=== PATIENT | female | born 1945 | race Caucasian/White ===

== ENCOUNTER 2021-03-17 06:33 | Observation (INO) ==
--- NOTE | 2021-02-17 14:54 | PAT Medication Instructions ---
Medication Instructions Date of Service February 17, 2021 Home Medications lorazepam 1 mg PO HS PRN meloxicam 15 mg PO DAILY PRN metoprolol succinate 50 mg PO QAM quinapril 30 mg PO QPM simvastatin 40 mg PO QPM ascorbic acid (vitamin C) [Vitamin C] 1,000 mg PO QAM calcium carbonate-vitamin D3 [Calcium 500 + D] 1 tab PO BID cyanocobalamin (vitamin B-12) 5,000 mcg PO QAM lactobacillus combination no.4 [Probiotic] 3,000 mmu cells PO QAM multivitamin 1 tab PO QAM omeprazole [Prilosec] 40 mg PO QAM vit C,W-Wy-xwqml-lutein-zeaxan [PreserVision AREDS-2] 1 tab PO BID zinc 50 mg PO QAM ASK your surgeon for instructions meloxicam 15 mg PO DAILY PRN STOP taking 2 weeks before surgery (or as soon as possible if surgery is within 2 weeks) vit C,R-Dg-onmkk-lutein-zeaxan [PreserVision AREDS-2] 1 tab PO BID DO NOT take the morning of surgery ascorbic acid (vitamin C) [Vitamin C] 1,000 mg PO QAM calcium carbonate-vitamin D3 [Calcium 500 + D] 1 tab PO BID cyanocobalamin (vitamin B-12) 5,000 mcg PO QAM lactobacillus combination no.4 [Probiotic] 3,000 mmu cells PO QAM multivitamin 1 tab PO QAM zinc 50 mg PO QAM Take morning of surgery With a small sip of water, OTHERWISE NOTHING TO EAT OR DRINK AFTER MIDNIGHT: metoprolol succinate 50 mg PO QAM omeprazole [Prilosec] 40 mg PO QAM Take evening before surgery lorazepam 1 mg PO HS PRN (if needed) quinapril 30 mg PO QPM simvastatin 40 mg PO QPM calcium carbonate-vitamin D3 [Calcium 500 + D] 1 tab PO BID Other Notes If you have any questions please call us at [phone] or [phone] or [phone] or [phone]
--- NOTE | 2021-02-21 10:55 | Anesthesiology Consultation ---
Date of Service February 21, 2021 Assessment & Plan (1) Encounter for pre-operative examination: COVID screening: Per assessment on 02/21: Travel screen negative, no known COVID- 19 positive contacts or current COVID-19 related symptoms. Patient vaccinated. Surgeon arranging preop COVID testing. Awaiting results. Chart Review Chart Review: Acceptable Risk for Surgery and Patient seen in Pre Admission Testing Teaching & Discussion Pre-Anesthesia Teaching/Discussion Notes: Instructed NPO after midnight before surgery,except medications with 15 cc of water. Medication instructions provided according to the PAT guidelines. History Surgery Operation Date: 03/17/21 07:00 Proposed Procedures p Left Total Knee Arthroplasty - Doug Perez MD Height/Weight Height: 5 ft 2 in Weight: 71.6 kg Allergies Allergy/AdvReac Type Severity Reaction Status Date / Time No Known Allergies Allergy Verified 01/21/21 13:54 Medications Home Medications Medication Instructions Recorded Confirmed Last Taken lorazepam 1 mg PO HS PRN 02/05/20 01/21/21 Unknown meloxicam 15 mg PO DAILY PRN 02/05/20 01/21/21 Unknown metoprolol succinate 50 mg PO QAM 02/05/20 01/21/21 Unknown quinapril 30 mg PO QAM 02/05/20 02/21/21 Unknown simvastatin 40 mg PO QPM 02/05/20 01/21/21 Unknown ascorbic acid (vitamin C) [Vitamin 1,000 mg PO QAM 01/21/21 01/21/21 Unknown C] calcium carbonate-vitamin D3 1 tab PO BID 01/21/21 01/21/21 Unknown [Calcium 500 + D] cyanocobalamin (vitamin B-12) 5,000 mcg PO QAM 01/21/21 01/21/21 Unknown lactobacillus combination no.4 3,000 mmu cells PO QAM 01/21/21 01/21/21 Unknown [Probiotic] multivitamin 1 tab PO QAM 01/21/21 01/21/21 Unknown omeprazole [Prilosec] 40 mg PO QAM 01/21/21 01/21/21 Unknown vit C,N-Eo-mdxdo-lutein-zeaxan 1 tab PO BID 01/21/21 01/21/21 Unknown [PreserVision AREDS-2] zinc 50 mg PO QAM 01/21/21 01/21/21 Unknown Past Medical History Medical History Arthritis Colitis 2020 GERD (gastroesophageal reflux disease) controlled Hypercholesterolemia Hypertension Exercise / Class Metabolic Activity II 4-5 Yardwork/Stairs/Walk up hill (one FS (no CP, no SOB)) Past Family History Family History Other No known health problems Past Surgical History Surgical History History of colonoscopy History of esophagogastroduodenoscopy (EGD) History of total knee replacement Right (2013) Past Anesthesia History No Hx of Anesthesia Complications and No Family Hx of Anesthesia Complications History of PONV No Hx of PONV and No Hx of Motion Sickness Social History Smoking Status: Never smoker Do You Dip or Chew Tobacco: No Hx Alcohol Use: Yes Alcohol type: wine alcohol intake frequency: a few times a week Hx Substance Use: No Review of Systems Patient denies chest pain, shortness of breath, dyspnea on exertion, fever, chills, cough, wheezing, palpitations. Physical Exam Vital Signs VITALS BP 145/79 P 80 TEMP 98.7 SP02 99%RA RESP 16 PHYSICAL Full cervical extension range of motion. Full TMJ range of motion. TMD 3 finger breaths Mallampati Score 1 Dentition: intact, + crowns (several) Lungs: clear throughout to auscultation Cardiac: regular rate and rhythm, no murmurs noted Spine: normal Carotid arteries: negative bruit Extremities: no edema Lab Results Anesthesia Preop Results Results Anesthesia Widget: WBC 8.09 K/uL (4.8-10.8) 02/21/21 Hgb 14.0 g/dL (12.0-16.0) 02/21/21 Hct 41.8 % (37-47) 02/21/21 Plt 259 K/uL (130-400) 02/21/21 Na 137 mmol/L (136-145) 02/21/21 K 4.2 mmol/L (3.5-5.1) 02/21/21 Cl 105 mmol/L (98-107) 02/21/21 CO2 30 mmol/L (21-32) 02/21/21 BUN 11 mg/dl (7-18) 02/21/21 Creat 0.72 mg/dl (0.6-1.2) 02/21/21 Glucose Level 129 mg/dl (70-99) H 02/21/21 PT 10.5 Seconds (9.0-12.0) 02/21/21 PTT 26.1 Seconds (21.0-31.0) 02/21/21 INR 1.0 (0.9-1.1) 02/21/21 HA1c 5.6 % (4.5-5.6) 02/21/21 Urine Color Yellow 02/21/21 Urine Appearance Clear (Clear) 02/21/21 Urine pH 6.0 (4.5-7.5) 02/21/21 Urine Specific Morgan 1.014 (1.000-1.030) 02/21/21 Urine Protein Negative (Negative) 02/21/21 Urine Glucose (UA) Negative (Negative) 02/21/21 Urine Ketones Negative (Negative) 02/21/21 Urine Blood Negative (Negative) 02/21/21 Urine Nitrite Negative (Negative) 02/21/21 Urine Bilirubin Negative (Negative) 02/21/21 Urine Urobilinogen Negative (Negative) 02/21/21 Urine Leukocyte Esterase Negative (Negative) 02/21/21 Blood Type O Positive 02/21/21 Antibody Screen NEGATIVE 02/21/21 Testing Electrocardiogram Date: 01/01/21 Normal sinus rhythm at 76 bpm. LAD. Moderate voltage criteria for LVH, may be normal variant. Nonspecific ST/T wave abnormality. No significant change compared to 07/20/2016 per traffic reporter review. Chest X-Ray Date: 02/21/21 FINDINGS: The cardiac and mediastinal contours are normal. There is no evidence of focal pulmonary consolidation. There is no evidence of failure. No pleural effusions are visualized.[There is mild thoracolumbar scoliosis. There are minor left basilar atelectatic changes. IMPRESSION: No active disease in the chest.
--- NOTE | 2021-03-14 22:43 | History & Physical Report ---
Date of Service March 14, 2021 Assessment & Plan (1) Primary osteoarthritis of left knee: Plan: Treatment options discussed with patient. She has failed conservative measures and would like to proceed with surgical intervention. Risks, benefits and alternatives to surgery including but not limited to infection, DVT, pain, stiffness, need for revision surgery, damage to blood vessels, damage to nerves, PE, , were discussed with the patient and they wish to proceed. Plan on left total knee arthroplasty at [facility] on 03/17/21. Will plan on ASA 81mg BID x 1 mo post op for DVT prophylaxis. Will plan on home health PT post discharge. All questions answered. She will follow up post operatively. History of Present Illness Chief Complaint: Left knee pain Primary Care Provider: Adrienne Arreola, 75 year old female with PMHx significant for HTN, high cholesterol, GERD, colitis who presents with ongoing left knee pain. She has history of right knee replacement and has done well. She has failed conservative measures. Pain interfering with her daily activities. She would like to proceed with knee replacement. Patient denies headaches, sweats, fevers, chills, double vision, blurred vision, cough, sore throat, dysphagia, chest pain, sob, wheezing, n/v/d/c, numbness, tingling, fatigue, urinary symptoms, mood disorders. ROS positive for left knee pain and stiffness. Allergies Allergy/AdvReac Type Severity Reaction Status Date / Time No Known Allergies Allergy Verified 01/21/21 13:54 Home Medications Medication Instructions Recorded Confirmed Type lorazepam 1 mg tablet 1 mg PO HS PRN 02/05/20 01/21/21 History meloxicam 15 mg tablet 15 mg PO DAILY PRN 02/05/20 01/21/21 History metoprolol succinate 50 mg 50 mg PO QAM 02/05/20 01/21/21 History tablet,extended release 24 hr quinapril 10 mg tablet 30 mg PO QAM 02/05/20 02/21/21 History simvastatin 40 mg tablet 40 mg PO QPM 02/05/20 01/21/21 History ascorbic acid (vitamin C) 1,000 mg 1,000 mg PO QAM 01/21/21 01/21/21 History tablet (Vitamin C) calcium carbonate 500 mg (1,250 1 tab PO BID 01/21/21 01/21/21 History mg)-vitamin D3 200 unit tablet (Calcium 500 + D) cyanocobalamin (vitamin B-12) 5,000 mcg PO QAM 01/21/21 01/21/21 History 5,000 mcg capsule lactobacillus combination no.4 3 3,000 mmu cells PO QAM 01/21/21 01/21/21 History billion cell capsule (Probiotic) multivitamin 1 tab PO QAM 01/21/21 01/21/21 History omeprazole 40 mg capsule,delayed 40 mg PO QAM 01/21/21 01/21/21 History release vit C 250 mg-vit E 90 mg-zinc 40 1 tab PO BID 01/21/21 01/21/21 History mg-copper 1 ru-vapkre-gyfxjn capsule (PreserVision AREDS-2) zinc 50 mg tablet 50 mg PO QAM 01/21/21 01/21/21 History Past Med/Surg History Medical History Arthritis Colitis 2020 GERD (gastroesophageal reflux disease) controlled Hypercholesterolemia Hypertension Surgical History History of colonoscopy History of esophagogastroduodenoscopy (EGD) History of total knee replacement Right (2013) Family History Other No known health problems Social History (Updated 01/21/21 @ 14:13 by Rand Wade RN) Smoking Status: Never smoker Second Hand Exposure: Yes (PARENTS SMOKED/SPOUSE USED TO SMOKE); Hx Alcohol Use: Yes Alcohol type: wine Hx Substance Use: No Preferred Language: [place]an Communication Ability: Effective Circus Trainer Required: No Beliefs That Will Affect Care: None Current Living Situation: Spouse current occupational status: retired Feels Safe at Home: Yes Assistive Devices: Contacts and Glasses Review of Systems All systems reviewed & are unremarkable except as noted in HPI & below Physical Exam Constitutional: well developed and well nourished; no acute distress Eyes: PERRL, conjunctivae normal, anicteric sclerae ENMT: external ear and nose normal, oropharynx normal Neck: trachea midline, no thyromegaly Respiratory: normal respiratory effort, lungs clear to auscultation Cardiovascular: RRR, no murmur, no edema Musculoskeletal: Left knee: Varus alignment. Tenderness medial joint line. Mild effusion. ROM 0-130 degrees. Stable to valgus and varus stress test with pseudolaxity. Crepitation with valgus/varus stress. Skin: no rashes, warm and dry Neurologic: patellar DTR's 2+ bilat, sensation intact Psychiatric: A+Ox3, euthymic affect Results & Data ([facility]) Diagnostic Findings Left knee radiographs: varus, bone on bone with flattening of the medial femoral condyle and tibia. She has bone spurs on the medial side. She has subchondral sclerosis. There is some mild subluxation of the femur medially on the tibia. She has some moderate patellofemoral OA
[~2021-03-17 06:33] MED LIST: ACETAMINOPHEN 500 MG TAB PO SCH; BUPIVACAINE 0.5 % 5 MG/1 ML PF 10ML VIAL ONE; CeleBREX 200 MG CAP PO SCH; EPINEPHrine INJ 1 MG/ML AMP ONE; FAMOTIDINE 20 MG TAB PO SCH; GABAPENTIN 300 MG CAP PO SCH; LR 500ML BOLUS, THEN 15ML/HR IV SCH; METOCLOPRAMIDE HCL 10 MG TABLET PO SCH; ROPIVACAINE 0.5% 5 MG/ML 30 ML VIAL ONE; ROPIVACAINE 0.5% HCL/PF 150 MG, BUPIVACAINE 0.75% MPF 20 ML, EPINEPHrine 30MG/30ML (OR ... INSTIL SCH; TRANEXAMIC ACID 1,000 MG **IV Intra-op IV SCH; TRANEXAMIC ACID 1,000 MG **IV Pre-op IV SCH; ceFAZolin 1000MG 1,000 MG/7.5 ML SYR IV SCH; ceFAZolin 2000MG 2,000 MG/15 ML SYR IV SCH; dexAMETHasone 4 MG TAB PO SCH
[2021-03-17] MEDS ORDERED: PROPOFOL IV EMULSION 10 MG/ML 20 ML VIAL IV ONE (07:04)
[2021-03-17] MEDS ORDERED: fentaNYL citrate 100 MCG/2 ML VIAL ONE (07:04)
[2021-03-17] MEDS ORDERED: LIDOCAINE 2% 2 ML VIAL/AMP(20MG/ML) INFIL ONE (07:04)
[2021-03-17] MEDS ORDERED: MIDAZOLAM HCL 1 MG/ML 2ML VIAL ONE ×2 (07:04→09:21)
--- NOTE | 2021-03-17 07:30 | History & Physical Bridge Note ---
Date of Service March 17, 2021 History & Physical Bridge Note I have examined the patient, reviewed the History & Physical and in the interval since the performance of the History & Physical I have noted the following changes of clinical significance: no changes noted,left total knee replacement planned.
[2021-03-17] MEDS ORDERED: ONDANSETRON INJ 2 MG/ML 2 ML VIAL IV PRN ×2 (08:08→12:16)
[2021-03-17] MEDS ORDERED: ePHEDrine sulfate 50 MG/ML AMP IV PRN (08:08)
[2021-03-17] MEDS ORDERED: ATROPINE SULFATE 0.1 MG/ML 10ML SYR IV PRN (08:08)
[2021-03-17] MEDS ORDERED: PHENYLEPHRINE 100MCG/ML 5ML SYR IV PRN (08:08)
[2021-03-17] MEDS ORDERED: LABETALOL HCL IV 5 MG/ML 20ML IV PRN (08:08)
[2021-03-17] MEDS ORDERED: HYDROmorphone INJ 1 MG/ML SYRINGE IV PRN (08:08)
[2021-03-17] MEDS ORDERED: MEPERIDINE HCL 25 MG/ML CARP/VIAL IV PRN (08:08)
[2021-03-17] MEDS ORDERED: fentaNYL citrate 100 MCG/2 ML VIAL IV PRN (08:08)
[2021-03-17] MEDS ORDERED: ORTHO JOINT ANESTHETIC ONE (08:32)
--- NOTE | 2021-03-17 11:14 | Operative Report ---
Post Operative Report Pre & Post Diagnosis Operation Date: 03/17/21 08:55 Pre-Op Diagnosis: Unilateral Primary Osteoarthritis, Left Knee Post-Op Diagnosis: Unilateral Primary Osteoarthritis, Left Knee I identified the patient and participated in the time-out.: Yes Procedure Operation Date: 03/17/21 08:55 Actual Procedures p Left Total Knee Arthroplasty(Left) - Doug Perez MD Surgeon Doug Perez MD Radial Router Operator Davy MEYERS Estimated Blood Loss 5 Findings Consistent with Post-Op Diagnosis Specimens Bone cuts Drains 2 Hemovac Anesthesia Type MAC Spinal Regional Complications none Disposition Disposition: Recovery Room Indications 75-year female with progressive osteoarthritis her left knee. Patient has a varus knee [id number]-al-oexn medial compartment with moderate patellofemoral osteoarthritis. Patient had a right knee replacement in the past.. Description of Procedure Patient was taken to the operating room placed supine on the operating table and anesthetized under spinal MAC regional anesthesia. Exam under anesthesia demonstrated good range of motion varus knee mild to moderate effusion. A pneumatic tourniquet was placed about the thigh of the left lower extremity. The left lower extremity was prepped and draped in usual fashion. The leg was elevated exsanguinated with an Esmarch bandage and the pneumatic was raised to 300 mm mercury. An anterior incision was made across the left knee. The skin was incised longitudinally subcutaneous flaps were elevated and an incision was made through the medial retinaculum extending up into the mid third of the quadriceps tendon and extended down to the medial tibial tubercle. Intra- articular findings demonstrated uizi-sl-sxcu medial compartment grade 4 medial facet osteoarthritis on the patella with grade 3 global changes on the patella. There were some loose bodies.. The knee was exposed by excising the infrapatellar fat pad, excising the meniscal remnants and anterior cruciate ligament and all loose bodies. Any inflamed synovial tissue was resected. The fat pad over the anterior femur was resected for placement of the component in that area. The lateral synovial bands were release. The femur was exposed. The custom femoral cutting block was pinned in position. The distal femoral cutting block was applied. The distal femoral cut was made with the oscillating saw. The size 6, 4-in-1 cutting block was placed. The anterior and posterior chamfer cuts were made. The knee was extended and a subperiosteal peel lateral release was performed around the patella. The patella width was measured and width was reproduced using freehand cut technique. The 29 millimeter symmetrical patella was used. 3 drill holes are made for the pegs. The tibia was exposed. A custom tibial cutting block was positioned and drill holes were made for the cutting guide. Cutting guide was placed and the proximal cut was made with the oscillating saw. All osteophytes were resected. The lamina car spotter was used to assess ligamentous balance and the ligaments were balanced in extension and flexion. This required a medial posterior medial release. The tibia was reexposed and measured for a size D tibial component. This was externally rotated in line with the tibial tubercle and the fixation pins were drilled. The proximal tibia was fashioned with the drill and punch. The size 6 CR femoral trial was inserted. The trial MC inserts were used. The 13 mm insert gave balanced ligaments through full range of motion. The patella tracked centrally. the trials were removed. The orthomix anesthetic cocktail was injected per protocol. The knee was then copiously irrigated with pulsatile lavage saline solution . The final components were cemented. The final components were [employer] persona left 6 narrow CR femur, D tibia, 13 MC poly for tibia, 29 symmetrical patella. After the cement cured with the knee in full extension the Betadine soak was used per protocol. The knee joint was copiously irrigated with saline solution. 2 drains were brought out laterally and connected to a Hemovac. The quadriceps tendon and medial retinaculum were closed with interrupted [id number] #1 Vicryl sutures. The knee was taken through a full range of motion and repair was secure. The subcutaneous tissues were closed with 2-0 Vicryl sutures and skin was closed with alyssa. Sterile dressings were applied and the patient tolerated the procedure well. Davy MEYERS my physician assistant director of nursing, assisted in soft tissue retraction instrument management leg positioning the closure and will participate in the postoperative care of the patient. I attest to the content of the Intraoperative Record and any orders documented therein. Any exceptions are noted below.
[2021-03-17] MEDS ORDERED: NALOXONE HCL 0.4 MG/1 ML VIAL/CARP IV PRN (12:16)
[2021-03-17] MEDS ORDERED: MAGNESIUM HYDROXIDE SUSP 30 ML UDC PO PRN (12:16)
[2021-03-17] MEDS ORDERED: HYDROmorphone INJ 0.5 MG/0.5 ML SYR IV PRN (12:16)
[2021-03-17] MEDS ORDERED: bisacodyL 10 MG SUPP PR PRN (12:16)
[2021-03-17] MEDS ORDERED: LORazepam 1 MG TAB PO PRN (12:16)
[2021-03-17] MEDS ORDERED: oxyCODONE HCL IR 5 MG TAB (IMMEDIATE RELEASE) PO PRN (12:16)
--- NOTE | 2021-03-17 12:19 | Anesthesiology Progress Note ---
Date of Service March 17, 2021 Anesthesia Post Procedure Vital Signs Vital Signs: Temp Pulse Pulse Resp BP BP Pulse Ox 03/17/21 12:10 36.6 C 75 19 157/92 H 96 03/17/21 12:00 61 17 155/92 H 96 03/17/21 11:50 69 18 146/78 H 96 03/17/21 11:43 36.6 C 80 20 114/81 96 03/17/21 07:56 37.1 C 85 18 169/96 H 98 Transfer of Care Handoff Completed per policy Notes Mental Status: alert / awake / arousable Patient Amnestic to Procedure: Yes Nausea / Vomiting: adequately controlled Pain: adequately controlled Airway Patency, RR, SpO2: stable & adequate BP & HR: stable & adequate Hydration State: stable & adequate Neuraxial Anesthesia: was administered and sensory block is resolving Anesthetic Complications: no major complications apparent and Pt Satisfied with anesthetic care
--- NOTE | 2021-03-17 12:20 | XRay Report ---
XR knee LT 1 or 2V routine CLINICAL HISTORY: Postoperative evaluation. COMPARISON: Knee radiographs June 06, 2012. FINDINGS: Alignment of the total left knee arthroplasty is anatomic. There is no periprosthetic frac ture or unexpected radiopaque foreign body. There are skin alyssa and surgical drains. IMPRESSION: Expected findings following total left knee arthroplasty. ACT 112: Negative or not required by law. Electronically signed by: Giovanni Baker M.D. 03/17/2021 12:18 PM
--- NOTE | 2021-03-17 14:44 | Hospitalist Consultation ---
Date of Consultation March 17, 2021 Assessment & Plan (1) Status post total left knee replacement: This is a 75-year-old female with PMH of hypertension, hyperlipidemia, insomnia and other medical problems listed below who is POD#0 s/p L TKA by Dr. Perez. POD#0 s/p L TKA by Dr. Perez Per ortho for pain control, wound care, anticoagulation and activities Monitor H&H, continue incentive spirometry, PT/OT when appropriate (2) Hypertension: Continue Toprol (recently increased to 100mg daily), Quinapril HS (3) Hypercholesterolemia: Continue statin (4) Insomnia: Home ativan HS PRN PCP: Maxwell Dispo: Per ortho Patient seen in collaboration with Dr. Turner. Please see addendum. Supervising Physician Co-Signing Physician Notes Patient is a 75-year-old female with history of hypertension, hyperlipidemia, insomnia and, GERD was consulted postop after having left total knee arthroplasty by . Patient is doing well postoperatively. She denies any significant pain at left knee. States having some heaviness of left lower extremity but otherwise denies any chest pain, shortness breath, dizziness, nausea, abdominal pain. Family at bedside. On exam patient is moderately built and nourished, no apparent distress, normocephalic atraumatic, lungs are clear to auscultation, normal breath sounds, S1-S2, no murmur, no pedal edema, abdomen soft, nontender, normal bowel sounds, left lower extremity surgical site in dressing,+ drain. Alert, awake, oriented, grossly no focal deficits. Patient is consulted for postop medical management. Monitor for postop anemia. Continue bowel regimen to prevent constipation. Incentive spirometry requested. Pain control, DVT prophylaxis as per primary team. Blood pressure stable. Continue home medications. I personally reviewed the record. Patient is interviewed and examined at bedside. Patient's care is coordinated with Denia Palomares PA-C. Please refer to the documentation above for details of patient's presentation and for discussion of other issues. History of Present Illness Reason for Consultation: Postop medical management Requesting Physician: Doug Perez MD Attending Physician: Doug Perez MD History of Present Illness This is a 75-year-old female with PMH of hypertension, hyperlipidemia, insomnia and other medical problems listed below who is POD#0 s/p L TKA by Dr. Perez. Feeling well postoperatively. Denies any pain or paresthesias in left knee. Tolerating diet without issue. Denies fever, chills, lightheadedness, visual changes, chest pain, shortness of breath, nausea, vomiting, abdominal pain, dysuria, diarrhea constipation. Follows with Dr. Arreola in outpatient setting. Recently had BP med regimen adjusted - Toprol dose increased to 100mg QAM and Quinapril 30mg was moved to evening. Allergies Allergy/AdvReac Type Severity Reaction Status Date / Time No Known Allergies Allergy Verified 03/17/21 07:22 Home Medications Medication Instructions Recorded Confirmed Type lorazepam 1 mg tablet 1 mg PO HS PRN 02/05/20 03/17/21 History meloxicam 15 mg tablet 15 mg PO DAILY PRN 02/05/20 03/17/21 History metoprolol succinate 50 mg 100 mg PO QAM 02/05/20 03/17/21 History tablet,extended release 24 hr simvastatin 40 mg tablet 40 mg PO QPM 02/05/20 03/17/21 History ascorbic acid (vitamin C) 1,000 mg 1,000 mg PO QAM 01/21/21 03/17/21 History tablet (Vitamin C) calcium carbonate 500 mg (1,250 1 tab PO BID 01/21/21 03/17/21 History mg)-vitamin D3 200 unit tablet (Calcium 500 + D) cyanocobalamin (vitamin B-12) 5,000 mcg PO QAM 01/21/21 03/17/21 History 5,000 mcg capsule lactobacillus combination no.4 3 3,000 mmu cells PO QAM 01/21/21 03/17/21 History billion cell capsule (Probiotic) multivitamin 1 tab PO QAM 01/21/21 03/17/21 History omeprazole 40 mg capsule,delayed 40 mg PO QAM 01/21/21 03/17/21 History release vit C 250 mg-vit E 90 mg-zinc 40 1 tab PO BID 01/21/21 03/17/21 History mg-copper 1 ju-adxytn-hsrvck capsule (PreserVision AREDS-2) zinc 50 mg tablet 50 mg PO QAM 01/21/21 03/17/21 History quinapril 20 mg tablet 30 mg PO HS 03/17/21 03/17/21 History Patient History Medical History Arthritis Colitis 2020 GERD (gastroesophageal reflux disease) controlled Hypercholesterolemia Hypertension Surgical History History of colonoscopy History of esophagogastroduodenoscopy (EGD) History of total knee replacement Right (2013) Family History Other Cancer Heart disease Social History Smoking Status: Never smoker Second Hand Exposure: Yes (PARENTS SMOKED/SPOUSE USED TO SMOKE); Do You Dip or Chew Tobacco: No; Hx Alcohol Use: Yes Alcohol type: wine Hx Substance Use: No Preferred Language: Kinyarwanda Communication Ability: Effective Line Service Supervisor Required: No Beliefs That Will Affect Care: None Current Living Situation: Spouse current occupational status: retired Other Information That Helps Us Care for You: No Feels Safe at Home: Yes Safety Concerns: Feels Safe At This Time Assistive Devices: Contacts and Glasses Assistive Devices Comment: WILL WEARS GLASSES DOS Review of Systems Review of Systems: At least ten systems reviewed and negative except as noted in the HPI. Physical Exam Physical Exam: General Appearance: WD/WN, vitals as above, NAD, sitting up in bed, pleasant, conversing easily Head: normocephalic, atraumatic Eyes: normal inspection, PERRL, conjunctivae normal, anicteric sclerae ENT: external ear and nose normal, oropharynx normal Neck: normal visual inspection, trachea midline, no thyromegaly Respiratory: normal respiratory effort, lungs clear to auscultation, no wheeze, rales, rhonchi. No accessory muscle use Cardiovascular: regular rate, rhythm, no murmur, normal peripheral pulses, no BLE edema. Vessels: no JVD Chest: normal inspection of chest Abdomen/GI: normal bowel sounds, soft, nontender, no hepatosplenomegaly Extremities/Musculoskeletal: L knee with surgical wrap clean, dri, intact. No cyanosis or clubbing, extremities motor strength 5/5 Neurologic: PERRL, EOMI, accommodation nl, no face palsy, no dysarthria, CN's II-XI intact bilaterally and moves all extremities Psychiatric: A+Ox3, euthymic affect Skin: no rashes, normal color, warm/dry Results & Data Results & Data ([facility]) Vital Signs (Past 12 Hours) Vital Signs Temp Pulse Pulse Resp BP BP Pulse Ox 03/17/21 14:00 36.7 C 79 18 158/89 H 98 03/17/21 13:55 82 17 166/95 H 96 03/17/21 13:25 81 17 163/92 H 97 03/17/21 13:10 81 18 158/93 H 97 03/17/21 12:55 76 16 162/92 H 98 03/17/21 12:40 64 16 162/89 H 97 03/17/21 12:25 59 L 12 159/90 H 97 03/17/21 12:10 36.6 C 75 19 157/92 H 96 03/17/21 12:00 61 17 155/92 H 96 03/17/21 11:50 69 18 146/78 H 96 03/17/21 11:43 36.6 C 80 20 114/81 96 03/17/21 07:56 37.1 C 85 18 169/96 H 98 Laboratory Results Short CBC 03/17/21 03/17/21 Range/Units Unknown Unknown COVID-19 Eval Order Covid19 [facility]Now [facility] SARS-CoV-2, RNA, NAAT NEGATIVE (NEGATIVE) Diagnostic Findings Knee X-Ray 03/17/21 11:48 XR knee LT 1 or 2V routine CLINICAL HISTORY: Postoperative evaluation. COMPARISON: Knee radiographs June 06, 2012. FINDINGS: Alignment of the total left knee arthroplasty is anatomic. There is no periprosthetic fracture or unexpected radiopaque foreign body. There are skin alyssa and surgical drains. IMPRESSION: Expected findings following total left knee arthroplasty. ACT 112: Negative or not required by law. Electronically signed by: Giovanni Baker M.D. 03/17/2021 12:18 PM
[2021-03-17] MEDS: ACETAMINOPHEN 500 MG TAB PO SCH ×2 (15:46→20:28)
[2021-03-17] MEDS: SODIUM CHLORIDE 0.9% 1000ML 1,000 ML IV SCH (15:46)
[2021-03-17] MEDS: ceFAZolin 1000MG 1,000 MG/7.5 ML SYR IV SCH (17:56)
[2021-03-17] MEDS: ASPIRIN 81 MG ECTAB PO SCH (20:28)
[2021-03-17] MEDS: CALCIUM 600MG + VIT D 400 IU TAB PO SCH (20:28)
[2021-03-17] MEDS: DOCUSATE SODIUM 100 MG CAP PO SCH (20:28)
[2021-03-17] MEDS ORDERED: SIMVASTATIN 40 MG TAB PO SCH (21:00)
[2021-03-17] MEDS ORDERED: SENNA 8.6 MG TAB PO SCH (21:00)
[2021-03-17] MEDS ORDERED: ENALAPRIL MALEATE 10 MG TAB PO SCH (21:00)
[2021-03-18] MEDS: SODIUM CHLORIDE 0.9% 1000ML 1,000 ML IV SCH (02:14)
[2021-03-18] MEDS: ceFAZolin 1000MG 1,000 MG/7.5 ML SYR IV SCH (02:14)
[2021-03-18] MEDS: ACETAMINOPHEN 500 MG TAB PO SCH ×2 (05:33→13:00)
[2021-03-18 06:18] LABS: Hematocrit (blood only) 30.3 % (37-47); Hemoglobin 10.2 g/dL (12.0-16.0); Mean Corpuscular Hemoglobin 30.4 pg (25-34); Mean Corpuscular Hgb Conc 33.7 g/dL (32-36); Mean Corpuscular Volume 90.4 fL (80-100); Platelet Count 222 K/uL (130-400); RDW Coefficient of Variation 13.3 % (11.5-14.5); RDW Standard Deviation 44.2 fL (36.4-46.3); Red Blood Count 3.35 M/uL (4.2-5.4); White Blood Count 14.69 K/uL (4.8-10.8)
[2021-03-18 06:47] LABS: BUN Creatinine Ratio 25.6 (10-20); Calcium 8.8 mg/dl (8.5-10.1); Creatinine Clr Calc Pharmacy 58.4 ml/min; Est GFR (African American) 86.8 ml/min; Est GFR (Non-African American) 74.9 ml/min; Potassium 3.8 mmol/L (3.5-5.1)
--- NOTE | 2021-03-18 07:39 | Orthopedic Progress Note ---
Date of Service March 18, 2021 Assessment & Plan (1) Primary osteoarthritis of left knee: Plan: Postop day 1 status post left total knee arthroplasty. PT/OT protocols. Weightbearing as tolerated. DVT prophylaxis with aspirin p.o. twice daily, ARINA Taylor. Pain management as written. DC planning-patient is planning for home health services upon discharge. Admission and Anticipated Discharge Date Admission Date: March 17, 2021 Subjective Postop day 1 Patient currently sitting up in bed awake and alert. No complaints this morning. Pain is controlled. Denies shortness of breath, chest pain, lightheadedness. Physical Exam Physical Exam: Presence are clean, dry, and intact. Calves are soft nontender. Neurovascular is intact. Toes are mobile. She has good dorsiflexion and plantarflexion of the left foot. She had 50 mL drainage from her Hemovac from the previous shift. Results & Data ([facility]) Vital Signs (Past 12 Hours) Vital Signs Temp Pulse Pulse Resp BP Pulse Ox 03/18/21 03:12 36.7 C 73 16 127/78 93 03/18/21 00:00 36.8 C 79 16 133/81 97 03/17/21 21:41 36.9 C 87 16 127/80 93 03/17/21 20:22 36.6 C 85 16 136/79 96 03/17/21 20:00 36.6 C 85 18 136/79 96 Diagnostic Findings Laboratory Results WBC 14.69 K/uL (4.8-10.8) H 03/18/21 05:51 RBC 3.35 M/uL (4.2-5.4) L 03/18/21 05:51 Hgb 10.2 g/dL (12.0-16.0) L 03/18/21 05:51 Hct 30.3 % (37-47) L 03/18/21 05:51 MCV 90.4 fL (80-100) 03/18/21 05:51 MCH 30.4 pg (25-34) 03/18/21 05:51 MCHC 33.7 g/dL (32-36) 03/18/21 05:51 RDW Std Deviation 44.2 fL (36.4-46.3) 03/18/21 05:51 RDW Coeff of Ezio 13.3 % (11.5-14.5) 03/18/21 05:51 Plt Count 222 K/uL (130-400) 03/18/21 05:51 MPV 9.0 fL (7.4-10.4) 03/18/21 05:51 Sodium 140 mmol/L (136-145) 03/18/21 05:51 Potassium 3.8 mmol/L (3.5-5.1) 03/18/21 05:51 Chloride 110 mmol/L (98-107) H 03/18/21 05:51 Carbon Dioxide 27 mmol/L (21-32) 03/18/21 05:51 Anion Gap 3.0 (3-11) 03/18/21 05:51 BUN 20 mg/dl (7-18) H 03/18/21 05:51 Creatinine 0.78 mg/dl (0.6-1.2) 03/18/21 05:51 Est Cr Clr Drug Dosing 58.4 ml/min 03/18/21 05:51 Est GFR ( Amer) 86.8 ml/min 03/18/21 05:51 Est GFR (Non-Af Amer) 74.9 ml/min 03/18/21 05:51 BUN/Creatinine Ratio 25.6 (10-20) H 03/18/21 05:51 Glucose 118 mg/dl (70-99) H 03/18/21 05:51 Calcium 8.8 mg/dl (8.5-10.1) 03/18/21 05:51 COVID-19 Eval Order Covid19 IDNow [facility] 03/17/21 Unknown SARS-CoV-2, RNA, NAAT NEGATIVE (NEGATIVE) 03/17/21 Unknown Impressions Knee X-Ray 03/17/21 11:48 XR knee LT 1 or 2V routine CLINICAL HISTORY: Postoperative evaluation. COMPARISON: Knee radiographs June 06, 2012. FINDINGS: Alignment of the total left knee arthroplasty is anatomic. There is no periprosthetic fracture or unexpected radiopaque foreign body. There are skin alyssa and surgical drains. IMPRESSION: Expected findings following total left knee arthroplasty. ACT 112: Negative or not required by law. Electronically signed by: Giovanni Baker M.D. 03/17/2021 12:18 PM
[2021-03-18] MEDS: CALCIUM 600MG + VIT D 400 IU TAB PO SCH (08:00)
[2021-03-18] MEDS: ASPIRIN 81 MG ECTAB PO SCH (08:00)
[2021-03-18] MEDS: DOCUSATE SODIUM 100 MG CAP PO SCH (08:01)
--- NOTE | 2021-03-18 08:41 | Hospitalist Progress Note ---
Date of Service March 18, 2021 Assessment & Plan (1) Status post total left knee replacement: Plan: This is a 75-year-old female with PMH of hypertension, hyperlipidemia, insomnia and other medical problems listed below who is POD#1 s/p L TKA by Dr. Perez. POD#1 s/p L TKA by Dr. Perez Per ortho for pain control, wound care, anticoagulation and activities Monitor H&H, continue incentive spirometry, PT/OT when appropriate Anemia hgb 10.2, pre op 14.0 ebl 5 ml; output 270ml likely dilutional Leukocytosis wbc 14.69 likely reactive post surgery no s/sx of infection (2) Hypertension: Plan: Continue Toprol (recently increased to 100mg daily), Quinapril HS (3) Hypercholesterolemia: Plan: Continue statin (4) Insomnia: Plan: Home ativan HS PRN PCP: Maxwell Dispo: Per ortho Patient seen in collaboration with Dr. Turner. Please see addendum. .thankyou Admission and Anticipated Discharge Date Admission Date: March 17, 2021 Supervising Physician Co-Signing Physician Notes Patient is seen and examined at bedside. Doing well postoperatively. Denies any pain at surgical site. Had PT eval earlier today. Denies chest pain, shortness breath, dizziness, nausea, abdominal pain. On exam patient is moderately built and nourished, no apparent distress, normocephalic atraumatic, lungs are clear to auscultation, normal breath sounds, S1-S2, no murmur, no pedal edema, abdomen soft, nontender, normal bowel sounds, left lower extremity surgical site in dressing,+ drain. Alert, awake, oriented, grossly no focal deficits. S/P L TKA POD #1 acute blood loss anemia--expected postoperatively. No indication for blood transfusion currently. Leukocytosis likely reactive. Continue bowel regimen to prevent constipation. Incentive spirometry requested. Pain control, DVT prophylaxis as per primary team. HTN: continue home meds. I personally reviewed the record. Patient is interviewed and examined at bedside. Patient's care is coordinated with Elizabeth Lambert PA-C. Please refer to the documentation above for details of patient's presentation and for discussion of other issues. Subjective Pt was seen and examined in room 306. S/P POD #1 L TKA. She is sitting up eating breakfast and offers no acute complaints. Denies acute pain. Anticipating going home today if PT goes well. Denies f/c/s, chest pain, sob, n/v/d, abdominal pain. She is urinating w/o difficulty. Appetite is good. Physical Exam Physical Exam: Gen: WD/WN, F, sitting up at bedside, NAD, A&O x3 HEENT: Normocephalic, atraumatic, conjunctivae moist, sclerae anicteric, mucous membranes moist. Lung: Clear to Auscultation bilaterally, no wheezes/rales/rhonchi Heart: Regular rate, regular rhythm, no murmurs, rubs, or gallops Abdomen: Soft, NT, ND +BS x 4 Extremities: LLE dressing CDI, NVI distally, hemovac in place, ROM x 4 Skin: Warm, no rash, negative turgor. Results & Data Results & Data ([facility]) Vital Signs (Past 12 Hours) Vital Signs Temp Pulse Resp BP Pulse Ox 03/18/21 03:12 36.7 C 73 16 127/78 93 03/18/21 00:00 36.8 C 79 16 133/81 97 03/17/21 21:41 36.9 C 87 16 127/80 93 Laboratory Results Short CBC 03/18/21 Range/Units 05:51 WBC 14.69 H (4.8-10.8) K/uL Hgb 10.2 L (12.0-16.0) g/dL Hct 30.3 L (37-47) % Plt Count 222 (130-400) K/uL BMP 03/18/21 05:51 Sodium 140 Potassium 3.8 Chloride 110 H Carbon Dioxide 27 BUN 20 H Creatinine 0.78 Glucose 118 H Calcium 8.8 Medications Administered Medication List Acetaminophen (Acetaminophen 500 Mg Tab) 1,000 mg PO Q8 [facility] Stop: 04/16/21 13:59 Last Admin: 03/18/21 05:33 Dose: 1,000 mg Documented by: [id number] Admin: 03/17/21 20:28 Dose: 1,000 mg Documented by: [id number] Admin: 03/17/21 15:46 Dose: 1,000 mg Documented by: [id number] Ascorbic Acid (Ascorbic Acid 500 Mg Tab) 1,000 mg PO QAM [facility] Stop: 04/17/21 08:59 Last Admin: 03/18/21 08:02 Dose: 1,000 mg Documented by: [id number] Aspirin (Aspirin 81 Mg Ectab) 81 mg PO BID [facility] Stop: 04/16/21 20:59 Last Admin: 03/18/21 08:00 Dose: 81 mg Documented by: [id number] Admin: 03/17/21 20:28 Dose: 81 mg Documented by: [id number] Cyanocobalamin (Cyanocobalamin (Vitamin B-12) 2,500 Mcg Tab.Subl) 5,000 mcg [facility] [place] Stop: 04/17/21 08:59 Last Admin: 03/18/21 08:00 Dose: 5,000 mcg Documented by: [id number] Docusate Sodium (Docusate Sodium 100 Mg Cap) 100 mg PO BID [facility] Stop: 04/16/21 20:59 Last Admin: 03/18/21 08:01 Dose: 100 mg Documented by: [id number] Admin: 03/17/21 20:28 Dose: 100 mg Documented by: [id number] Enalapril Maleate (Enalapril Maleate 10 Mg Tab) 30 mg PO QPM [facility] Stop: 04/16/21 20:59 Last Admin: 03/17/21 20:28 Dose: 30 mg Documented by: [id number] Lorazepam (Lorazepam 1 Mg Tab) 1 mg PO HS PRN PRN Reason: Sleep Stop: 04/16/21 12:15 Last Admin: 03/17/21 20:28 Dose: 1 mg Documented by: [id number] Metoprolol Succinate (Metoprolol Succ 50mg Ext Rel Tab) [facility] [place] Stop: 04/17/21 08:59 Last Admin: 03/18/21 08:01 Dose: 100 mg Documented by: [id number] Multivitamins (Multivitamin Tab) 1 tab PO QAM [facility] Stop: 04/17/21 08:59 Last Admin: 03/18/21 08:02 Dose: 1 tab Documented by: [id number] Multivitamins/Minerals (Calcium 600mg + Vit D 400 Iu Tab) 1 tab PO BID [facility] Stop: 04/16/21 20:59 Last Admin: 03/18/21 08:00 Dose: 1 tab Documented by: [id number] Admin: 03/17/21 20:28 Dose: 1 tab Documented by: [id number] Pantoprazole Sodium (Pantoprazole 40 Mg Tab) [facility] [place] Stop: 04/17/21 08:59 Last Admin: 03/18/21 08:02 Dose: 40 mg Documented by: [id number] Sennosides (Senna 8.6 Mg Tab) 17.2 mg PO HS [facility] Stop: 04/16/21 20:59 Last Admin: 03/17/21 20:27 Dose: 17.2 mg Documented by: [id number] Simvastatin (Simvastatin 40 Mg Tab) 40 mg PO QPM [facility] Stop: 04/16/21 20:59 Last Admin: 03/17/21 20:27 Dose: 40 mg Documented by: [id number] Discontinued Medications Acetaminophen (Acetaminophen 500 Mg Tab) 1,000 mg PO PREOP [facility] Stop: 03/17/21 18:00 Last Admin: 03/17/21 07:45 Dose: 1,000 mg Documented by: [id number] Celecoxib (Celebrex 200 Mg Cap) 200 mg PO PREOP [facility] Stop: 03/17/21 18:00 Last Admin: 03/17/21 07:46 Dose: 200 mg Documented by: [id number] Dexamethasone (Dexamethasone 4 Mg Tab) 8 mg PO PREOP [facility] Stop: 03/17/21 18:00 Last Admin: 03/17/21 07:45 Dose: 8 mg Documented by: [id number] Famotidine (Famotidine 20 Mg Tab) 20 mg PO PREOP [facility] Stop: 03/17/21 18:00 Last Admin: 03/17/21 07:45 Dose: 20 mg Documented by: [id number] Gabapentin (Gabapentin 300 Mg Cap) 300 mg PO PREOP [facility] Stop: 03/17/21 18:00 Last Admin: 03/17/21 07:45 Dose: 300 mg Documented by: [id number] Lactated Ringer's (Lr) 1,000 mls @ 15 mls/hr IV .Q24H [facility] Stop: 03/17/21 18:00 Last Infusion: 03/17/21 09:32 Dose: 0 mls/hr Documented by: [id number] Admin: 03/17/21 07:41 Dose: 15 mls/hr Documented by: [id number] Ropivacaine 150 mg/Bupivacaine HCl 20 ml/Epinephrine HCl 0.15 mg/Ketorolac Tromethamine 30 mg/Dexamethasone 4 mg/ Ketamine HCl 10 mg/ Clonidine HCl 100 mcg/ Sodium Chloride 88.35 mls @ 0 mls/hr INSTIL TODAY@0600 [facility]; Protocol Stop: 03/17/21 06:01 Last Admin: 03/17/21 11:16 Dose: 88.35 mls/hr Documented by: [id number] Tranexamic Acid (Tranexamic Acid / 0.7% Nacl) 1,000 mg in 100 mls @ 600 mls/hr IV TODAY@0600 [facility] Stop: 03/17/21 18:00 Last Infusion: 03/17/21 09:06 Dose: 0 mls/hr Documented by: [id number] Admin: 03/17/21 09:06 Dose: 600 mls/hr Documented by: [id number] Tranexamic Acid (Tranexamic Acid / 0.7% Nacl) 1,000 mg in 100 mls @ 600 mls/hr IV TODAY@0600 CATE Stop: 03/17/21 18:00 Last Infusion: 03/17/21 15:29 Dose: 0 mls/hr Documented by: [id number] Admin: 03/17/21 11:15 Dose: 600 mls/hr Documented by: [id number] Cefazolin Sodium (Ancef 1000mg) 1,000 mg in 7.5 mls @ 2.5 mls/min IV PREOP [facility]; Protocol Stop: 03/17/21 18:00 Last Admin: 03/17/21 09:29 Dose: 2.5 mls/min Documented by: [id number] Sodium Chloride (Nss 1000ml) 1,000 mls @ 100 mls/hr IV .Q10H [facility] Stop: 03/18/21 06:00 Last Infusion: 03/18/21 07:57 Dose: 0 mls/hr Documented by: [id number] Admin: 03/18/21 02:14 Dose: 100 mls/hr Documented by: [id number] Infusion: 03/18/21 01:46 Dose: 100 mls/hr Documented by: [id number] Admin: 03/17/21 15:46 Dose: 100 mls/hr Documented by: [id number] Cefazolin Sodium (Ancef 1000mg) 1,000 mg in 7.5 mls @ 2.5 mls/min IV Q8H [facility]; Protocol Stop: 03/18/21 02:02 Last Admin: 03/18/21 02:14 Dose: 2.5 mls/min Documented by: [id number] Admin: 03/17/21 17:56 Dose: 2.5 mls/min Documented by: [id number] Metoclopramide HCl (Metoclopramide Hcl 10 Mg Tablet) 10 mg PO PREOP [facility] Stop: 03/17/21 18:00 Last Admin: 03/17/21 07:45 Dose: 10 mg Documented by: [id number] Miscellaneous (Ortho Joint Anesthetic ) Confirm Administered Dose 1 ea .ROUTE .STK-MED ONE Stop: 03/17/21 08:33 Last Admin: 03/17/21 15:29 Dose: Not Given Documented by: [id number]
[2021-03-18] MEDS ORDERED: PANTOprazole 40 MG TAB PO SCH (09:00)
[2021-03-18] MEDS ORDERED: ASCORBIC ACID 500 MG TAB PO SCH (09:00)
[2021-03-18] MEDS ORDERED: NON-FORMULARY MEDICATION (Lactobacillus Combination No.4 [Probiotic] 3 billion cell Capsul PO SCH (09:00)
[2021-03-18] MEDS ORDERED: METOPROLOL SUCC 50MG EXT REL TAB PO SCH (09:00)
[2021-03-18] MEDS ORDERED: ENALAPRIL MALEATE 10 MG TAB PO SCH (09:00)
[2021-03-18] MEDS ORDERED: MULTIVITAMIN TAB PO SCH (09:00)
[2021-03-18] MEDS ORDERED: CYANOCOBALAMIN (VITAMIN B-12) 2,500 MCG TAB.SUBL SL SCH (09:00)
--- NOTE | 2021-03-19 15:32 | Discharge Summary ---
Date of Service March 19, 2021 Admission HPI Per Admitting Provider 75 year old female with PMHx significant for HTN, high cholesterol, GERD, colitis who presents with ongoing left knee pain. She has history of right knee replacement and has done well. She has failed conservative measures. Pain interfering with her daily activities. She would like to proceed with knee replacement. Patient denies headaches, sweats, fevers, chills, double vision, blurred vision, cough, sore throat, dysphagia, chest pain, sob, wheezing, n/v/d/c, numbness, tingling, fatigue, urinary symptoms, mood disorders. ROS positive for left knee pain and stiffness. Admission Exam Per Admitting Provider Physical Exam Constitutional: well developed and well nourished; no acute distress Eyes: PERRL, conjunctivae normal, anicteric sclerae ENMT: external ear and nose normal, oropharynx normal Neck: trachea midline, no thyromegaly Respiratory: normal respiratory effort, lungs clear to auscultation Cardiovascular: RRR, no murmur, no edema Musculoskeletal: Left knee: Varus alignment. Tenderness medial joint line. Mild effusion. ROM 0-130 degrees. Stable to valgus and varus stress test with pseudolaxity. Crepitation with valgus/varus stress. Skin: no rashes, warm and dry Neurologic: patellar DTR's 2+ bilat, sensation intact Psychiatric: A+Ox3, euthymic affect Principal Diagnosis Left Knee Osteoarthritis Discharge Data Allergies Allergy/AdvReac Type Severity Reaction Status Date / Time No Known Allergies Allergy Verified 03/17/21 07:22 Consultations 03/12/21 14:41 Consult Hospitalist Routine Procedures Performed Operation Date: 03/17/21 08:55 Actual Procedures p Left Total Knee Arthroplasty(Left) - Doug Perez MD Ordered Studies 03/17/21 05:00 US - OR guided needle placemen Routine Hospital Course (1) Primary osteoarthritis of left knee: [id number] (Blank) Addendum March 18, 2021 13:14 Progressing well with PT. Pain controlled. Plan for dc to home. Addendum Signed By:<Electronically signed by Davy Berrios PA-C>03/18/21 1314Addendum Cosigned By:<Electronically signed by Abdoul Mcmahan DO>03/18/21 1333Created: 03/18/21 Date of Service March 18, 2021 Assessment & Plan (1) Primary osteoarthritis of left knee: Plan: Postop day 1 status post left total knee arthroplasty. PT/OT protocols. Weightbearing as tolerated. DVT prophylaxis with aspirin p.o. twice daily, Claudia, ARINA do. Pain management as written. DC planning-patient is planning for home health services upon discharge. Admission and Anticipated Discharge Date Admission Date: March 17, 2021 Subjective Postop day 1 Patient currently sitting up in bed awake and alert. No complaints this morning. Pain is controlled. Denies shortness of breath, chest pain, lightheadedness. Physical Exam Physical Exam: Presence are clean, dry, and intact. Calves are soft nontender. Neurovascular is intact. Toes are mobile. She has good dorsiflexion and plantarflexion of the left foot. She had 50 mL drainage from her Hemovac from the previous shift. Results & Data ([facility]) Vital Signs (Past 12 Hours) Vital Signs Temp Pulse Pulse Resp BP Pulse Ox 03/18/21 03:12 36.7 C 73 16 127/78 93 03/18/21 00:00 36.8 C 79 16 133/81 97 03/17/21 21:41 36.9 C 87 16 127/80 93 03/17/21 20:22 36.6 C 85 16 136/79 96 03/17/21 20:00 36.6 C 85 18 136/79 96 Diagnostic Findings Laboratory Results WBC 14.69 K/uL (4.8-10.8) H 03/18/21 05:51 RBC 3.35 M/uL (4.2-5.4) L 03/18/21 05:51 Hgb 10.2 g/dL (12.0-16.0) L 03/18/21 05:51 Hct 30.3 % (37-47) L 03/18/21 05:51 MCV 90.4 fL (80-100) 03/18/21 05:51 MCH 30.4 pg (25-34) 03/18/21 05:51 MCHC 33.7 g/dL (32-36) 03/18/21 05:51 RDW Std Deviation 44.2 fL (36.4-46.3) 03/18/21 05:51 RDW Coeff of Ezio 13.3 % (11.5-14.5) 03/18/21 05:51 Plt Count 222 K/uL (130-400) 03/18/21 05:51 MPV 9.0 fL (7.4-10.4) 03/18/21 05:51 Sodium 140 mmol/L (136-145) 03/18/21 05:51 Potassium 3.8 mmol/L (3.5-5.1) 03/18/21 05:51 Chloride 110 mmol/L (98-107) H 03/18/21 05:51 Carbon Dioxide 27 mmol/L (21-32) 03/18/21 05:51 Anion Gap 3.0 (3-11) 03/18/21 05:51 BUN 20 mg/dl (7-18) H 03/18/21 05:51 Creatinine 0.78 mg/dl (0.6-1.2) 03/18/21 05:51 Total Time Total Time Spent Total Time Spent (In Minutes): 5 Discharge Plan Discharge Items Patient Disposition: Home - Home Health Services Reason For Visit: Unilateral Primary Osteoarthritis, Left Knee Discharge Diagnosis: Osteoarthritis left knee Activity: Per Instructions section Weightbearing: Left weightbearing Weightbearing Comment: As tolerated with walker Non-emergency contact: Surgeon Call non-emergency contact if: your pain is not controlled, your temperature is above 101.5, your wound has increased redness and your wound has increased roberto inage Follow-up/Referrals: Adrienne Arreola DO [Primary Care Provider] - Diet: Regular Addtl Attending Provider Instructions: ACTIVITY RECOMMENDATIONS: SELF CARE INSTRUCTIONS AFTER TOTAL KNEE REPLACEMENT A. You may need to continue a physical therapy program after discharge from the hospital. There are several options available to you. Your doctor will assist you in selecting the best one for you. 1. An out-patient facility 2 to 3 times a week for therapy or home therapy. 2. Continue working on all exercises taught to you in the hospital. Your goals should be to increase bending of your knee to 90 degrees and beyond and to fully straighten your knee. B. You may progress at your own pace from walking with a walker or crutches to a cane; then to no assistive devices. C. Make walking a part of your daily routine. Be up as much as comfortable with rest periods throughout the day. Rest with leg elevation is very important. Use the ice wrap frequently for the first 3-4 weeks. D. There are no restrictions on activities. 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 E. Wear the long elastic stockings (ARINA hose) 20 hours a day for 2 weeks after surgery. They can be removed several times a day for laundering and for a bath. F. You may shower, no tub baths until cleared by your doctor. SPECIAL CARE INSTRUCTIONS: VERY IMPORTANT TO READ AND REVIEW A. There are a few signs you need to watch for after you are home. Call [facility] if you notice any of the followin. Increased severe knee pain. Some pain is expected especially when you exercise. 2. Increased swelling in your leg or knee; pain or swelling of the calf muscle in either lower leg. 3. Any fluid drainage from the incision. 4. Shortness of breath or chest pain. B. Please call [facility] at if you have any concerns or questions about your operation or recovery. The doctor or his nurse will return your call promptly. C. You must take antibiotics before dental work, bladder, bowel or other surgery. Your doctor will provide you with a permanent care to carry describing this precaution. IMPORTANT: * REMEMBER TO TAKE ASPIRIN, 81 MG, TWICE DAILY FOR 4 WEEKS UNLESS OTHERWISE DIRECTED. THIS IS YOUR BLOOD THINNER. * HIGH RISK PATIENTS MAY BE PRESCRIBED A STRONGER BLOOD THINNER. THIS WILL BE PROVIDED AT DISCHARGE. * CALL IF INCREASED PAIN, REDNESS, DRAINAGE OR FEVER GREATER THAT 101. * WEAR ARINA HOSE 20 HOURS PER DAY FOR 2 WEEKS. * NIRMALA dressing - This is a large suction dressing covering your incision. This will help pull any excess drainage from the wound and allow your incision to heal properly. You may shower with this if you can keep the unit outside of the shower. If any bleeding or leakage is noted please call your doctor's office. This will remain on your incision for 7 days and then should be removed. This can be done yourself or by the home nursing staff if applicable. The entire unit is disposable once removed. Once removed, keep incision clean and dry. If redness or drainage is noted, please call your surgeon. . FOLLOW UP VISIT: If appointment is not already scheduled: Please call [facility] to make a follow-up appointment for 2 weeks after your surgery at . Pending Studies at Discharge: No Stand-Alone Forms: My [facility] [address], Smoking Cessation Medications and DC Order Prescriptions: New acetaminophen [Tylenol Extra Strength] 500 mg Tablet 1,000 mg PO Q8 14 Days Qty: 84 RF: 0 aspirin 81 mg Tablet,Delayed Release (Dr/Ec) 81 mg PO BID 30 Days Qty: 60 RF: 0 polyethylene glycol 3350 [Miralax] 17 gram powder in packet 17 g PO DAILY PRN (Reason: constipation) Qty: 5 RF: 0 oxycodone 5 mg Tablet 5 mg PO Q4H MDD 6 PRN (Reason: pain) Qty: 30 RF: 0 Continued metoprolol succinate 50 mg tablet extended release 24 hr 100 mg PO QAM RF: 0 simvastatin 40 mg tablet 40 mg PO QPM RF: 0 lorazepam 1 mg tablet 1 mg PO HS PRN (Reason: Sleep) RF: 0 multivitamin Tablet 1 tab PO QAM RF: 0 ascorbic acid (vitamin C) [Vitamin C] 1,000 mg Tablet 1,000 mg PO QAM RF: 0 omeprazole 40 mg Capsule,Delayed Release(Dr/Ec) 40 mg PO QAM RF: 0 zinc 50 mg Tablet 50 mg PO QAM RF: 0 calcium carbonate-vitamin D3 [Calcium 500 + D] 500 mg(1,250mg) -200 unit Tablet 1 tab PO BID RF: 0 Probiotic 3 billion cell Capsule 3,000 mmu cells PO QAM RF: 0 PreserVision AREDS-2 250-90-40-1 mg Capsule 1 tab PO BID RF: 0 cyanocobalamin (vitamin B-12) 5,000 mcg Capsule 5,000 mcg PO QAM RF: 0 quinapril 20 mg tablet 30 mg PO HS RF: 0 Discontinued meloxicam 15 mg tablet 15 mg PO DAILY PRN (Reason: Arthritis Pain) RF: 0 Discharge Orders: Discharge Order (Routine); Ordered 03/18/21 Ordered By: Davy Dunlap/Other Patient Handouts: DVT Post Op Prevention, Knee Replace After Surgery Admission Data Admit Date/Time: 03/17/21 11:48 Attending Provider: Doug Perez Admit Provider: Doug Perez Primary Care Provider: Adrienne Arreola Other Providers: Rishi Turner ; [facility] Other Interventions: Discharge Summary Assessment (RN) Last Done: 03/18/21 08:12
== END 2021-03-18 15:08 | disposition home health service (06) ==
LOC: ASU 06:33 → PACUINP 06:33 → 3E 14:06